=== PATIENT | male | born 1990 | race Caucasian/White ===

== ENCOUNTER 2019-11-20 22:55 | Emergency (ER) | payer OTHER ==
[~2019-11-20] VITALS: Ht 177.8 cm; Wt 136.1 kg
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
[2019-11-20 23:27] LABS: BASO # 0.2 x10^3/uL (0.0-0.2); BASO % 1 % (0-3); EOS # 0.3 x10^3/uL (0.0-0.7); EOS % 2 % (0-3); HEMATOCRIT 41.7 % (39.0-53.0); HEMOGLOBIN 14.1 g/dL (13.0-17.5); LYMPH # 2.1 x10^3/uL (1.0-4.8); LYMPH % 13 % (24-48); MEAN CORPUSCULAR HEMOGLOBIN 29 pg (25-35); MEAN CORPUSCULAR HGB CONC 34 g/dL (31-37); MEAN CORPUSCULAR VOLUME 87 fL (79-100); MONO % 6 % (0-9); NEUT # 12.4 x10^3/uL (1.8-7.7); NEUT % 78 % (31-73); PLATELET COUNT 238 x10^3/uL (140-400); RED BLOOD COUNT 4.82 x10^6/uL (4.30-5.70); RED CELL DISTRIBUTION WIDTH 14.6 % (11.5-14.5); WHITE BLOOD COUNT 15.9 x10^3/uL (4.0-11.0)
[2019-11-20] MEDS ORDERED: IV NORMAL SALINE 1000ML BAG 1,000 ML IV SCH (23:30)
[2019-11-20 23:33] LABS: CALCIUM 9.3 mg/dL (8.5-10.1); CREATININE 1.1 mg/dL (0.7-1.3); GFR 78.1; POTASSIUM 3.6 mmol/L (3.5-5.1)
[2019-11-20 23:39] LABS: ALBUMIN/GLOBULIN RATIO 1.2 (1.0-1.7); TOTAL BILIRUBIN 0.4 mg/dL (0.2-1.0); TOTAL PROTEIN 7.3 g/dL (6.4-8.2)
[2019-11-20 23:40] LABS: PROTHROMBIN TIME PATIENT 13.6 SEC (11.7-14.0)
[2019-11-21] MEDS ORDERED: IOHEXOL 300 MG/ML 100ML VIAL. IV ONE (00:15)
--- NOTE | 2019-11-21 00:20 | RAD ---
PQRS Compliance Statement: One or more of the following individualized dose reduction techniques were utilized for this examination: 1. Automated exposure control 2. Adjustment of the mA and/or kV according to patient size 3. Use of iterative reconstruction technique CT HEAD AND CERVICAL SPINE WITHOUT CONTRAST History: Comparison: None. Procedure: Axial images are obtained of the head from the skull base through the vertex without IV contrast. Noncontrast helical CT of the cervical spine was performed. Axial, sagittal, and coronal reconstructions were obtained. Findings: The ventricles and sulci are normal for the patient's age. No mass-effect, midline shift, hemorrhage or obvious acute infarction is identified. Basilar cisterns are patent. Bone windows demonstrate no significant calvarial abnormality. Mucosal thickening of the bilateral ethmoid and right maxillary sinuses. No air-fluid level is appreciated. Mastoid air cells are well aerated. There is no evidence of acute fracture or acute malalignment of the cervical spine. Facet joints are intact. The vertebral body height and alignment are maintained. There is no significant disc space narrowing. There is minimal degenerative endplate spurring. The cranial vertebral junction is intact. Visualized soft tissues of the neck demonstrate no significant abnormalities. The visualized lung apices are clear. IMPRESSION: 1. No acute intracranial abnormality. 2. No acute fracture of the cervical spine. Electronically signed by: Antwan Canada MD (11/21/2019 12:18 AM) [id number]
[2019-11-21] MEDS ORDERED: DIPHTH,PERTUSS(ACELL),TET TOX 0.5 ML DISP.SYRIN. VAX IM ONE (00:30)
[2019-11-21] MEDS ORDERED: CONTRAST GIVEN. MC PRN (00:30)
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
[2019-11-21] MEDS ORDERED: TRAM50TA PO (00:57)
[2019-11-21 01:05] VITALS: BP 118/71
[2019-11-21] MEDS ORDERED: NEOMY/BACITR/POLYMYXIN OINT PACKET. TP ONE (01:30)
--- NOTE | 2019-11-23 01:56 | EKG ---
[facility] [address] [place] [address] Test Date: 2019-11-20 Test Time: 23:09:31 Pat Name: JOHANA DAWKINS Department: Room: Gender: M [employer] Administrator: : 1990 Requested By: GRICELDA KERR Order Number: [id number] Reading MD: Measurements Intervals [place] Rate: 109 P: 42 SC: 194 QRS: 48 QRSD: 86 T: 10 QT: 320 QTc: 432 Interpretive Statements SINUS TACHYCARDIA OTHERWISE NORMAL ECG RI6.01 No previous ECG available for comparison
== END 2019-11-21 01:30 | disposition home or self-care (01) ==
LOC: ER 22:55
DX: S01.112A Laceration without foreign body of left eyelid and periocular area, initial encounter (principal); S01.412A Laceration without foreign body of left cheek and temporomandibular area, initial encounter; S30.811A Abrasion of abdominal wall, initial encounter; V89.2XXA Person injured in unspecified motor-vehicle accident, traffic, initial encounter; Y93.89 Activity, other specified; Y92.413 State road as the place of occurrence of the external cause; Y99.8 Other external cause status
CPT/HCPCS: 12011; 36415; 70450; 71260; 72125; 74177; 80053; 85025; 85610; 85730; 90471; 90715; 93005; 99285; J7030; Q9967

== ENCOUNTER 2019-11-26 10:59 | Emergency (ER) | payer OTHER ==
[~2019-11-26] VITALS: Ht 177.8 cm; Wt 136.0 kg
[~2019-11-26 10:59] MED LIST: TRAM50TA PO
[2019-11-26 11:10] VITALS: BP 135/82
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
== END 2019-11-26 11:40 | disposition home or self-care (01) ==
LOC: ER 10:59
DX: S01.112D Laceration without foreign body of left eyelid and periocular area, subsequent encounter (principal); S01.412D Laceration without foreign body of left cheek and temporomandibular area, subsequent encounter; F17.200 Nicotine dependence, unspecified, uncomplicated; V89.2XXD Person injured in unspecified motor-vehicle accident, traffic, subsequent encounter
CPT/HCPCS: 99281